=== PATIENT | female | born 1970 | race African-American/Black ===

== ENCOUNTER 2018-03-08 18:52 | Emergency (ER) | payer MEDICAID ==
[~2018-03-08] VITALS: Ht 165.1 cm; Wt 79.4 kg
[~2018-03-08 18:52] MED LIST: ALBUTEROL SULF8.5 GM INH; BENADRYL50 MG PO; CLARITIN10 M2 ORAL; IBUPROFEN600 MG ORAL; IBUPROFEN600 MG PO; NKM; NORCO 5-325 TA1 EACH ORAL; PREDNISONE20 MG ORAL; SILVADENE CREAM50 GM TOP
[2018-03-08] MEDS ORDERED: Methocarbamol 500mg tab ORAL ONE (19:15)
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
[2018-03-08] MEDS ORDERED: ROBAXIN500 MG PO (19:47)
[2018-03-08] MEDS ORDERED: LIDOCAINE700 M1 TP (19:47)
[2018-03-08] MEDS ORDERED: TYLENOL EXTRA500 MG ORAL (19:47)
[2018-03-08 20:06] VITALS: BP 110/72
--- NOTE | 2018-03-09 10:22 | Diagnostic Imaging Report ---
Indications: hip pain Findings: Two views of the right hip were obtained. No acute fracture is demonstrated. Alignment of the hip is within normal limits. Soft tissues are unremarkable. Impression: Negative for acute injury.
== END 2018-03-08 20:06 | disposition home or self-care (01) ==
LOC: EMR 19:30
DX: S70.01XA Contusion of right hip, initial encounter (principal); V43.52XA Car driver injured in collision with other type car in traffic accident, initial encounter; Y92.89 Other specified places as the place of occurrence of the external cause; J45.909 Unspecified asthma, uncomplicated
CPT/HCPCS: 99283

== ENCOUNTER 2018-05-29 18:57 | Emergency (ER) | payer MEDICAID ==
[~2018-05-29] VITALS: Ht 165.1 cm; Wt 74.8 kg
[~2018-05-29 18:57] MED LIST changes: +LIDOCAINE700 M1 TP; +ROBAXIN500 MG PO; +TYLENOL EXTRA500 MG ORAL
[2018-05-29] MEDS ORDERED: NKM (19:30)
[2018-05-29 19:40] VITALS: BP 158/88
[2018-05-29] MEDS ORDERED: ROBAXIN-750750 MG PO (19:47)
[2018-05-29] MEDS ORDERED: IBUPROFEN600 MG ORAL (19:47)
[2018-05-29 19:55] VITALS: BP 158/88
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
== END 2018-05-29 19:55 | disposition home or self-care (01) ==
LOC: EMR 19:43
DX: S16.1XXA Strain of muscle, fascia and tendon at neck level, initial encounter (principal); S39.012A Strain of muscle, fascia and tendon of lower back, initial encounter; V43.52XA Car driver injured in collision with other type car in traffic accident, initial encounter; Y92.410 Unspecified street and highway as the place of occurrence of the external cause; J45.909 Unspecified asthma, uncomplicated
CPT/HCPCS: 99283

== ENCOUNTER 2020-07-06 19:33 | Emergency (ER) | payer MEDICAID ==
[~2020-07-06] VITALS: Ht 165.1 cm; Wt 77.1 kg
[~2020-07-06 19:33] MED LIST changes: +ROBAXIN-750750 MG PO
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
[2020-07-06 19:44] VITALS: BP 118/80
[2020-07-06] MEDS ORDERED: LORATADINE10 M1 PO (19:49)
[2020-07-06] MEDS ORDERED: VENTOLIN HFA18 GM INH (19:50)
--- NOTE | 2020-07-06 19:53 | NUR ---
ER DISCHARGE NOTE: Patient is cleared to be discharged per ERMD, pt is aox4, on room air, with stable vital signs. pt was given dc and prescription instructions, pt was able to verbalize understanding, pt id band removed. pt is able to ambulate with steady gait. pt took all belongings.
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
[2020-07-06 19:55] VITALS: BP 118/80
== END 2020-07-06 19:55 | disposition home or self-care (01) ==
LOC: EMR 19:50
DX: J02.9 Acute pharyngitis, unspecified (principal); J45.909 Unspecified asthma, uncomplicated; Z79.899 Other long term (current) drug therapy
CPT/HCPCS: 99282